=== PATIENT | male | born 1930 | race American Indian/Alaskan Native ===

== ENCOUNTER 2017-11-14 09:27 | Inpatient (IN) | payer MEDICARE ==
[2017-11-14] MEDS ORDERED: ANCEF/STERILE WATER 2 GM/20 ML 2 GM/20 ML SYRINGE IV NR (11:00)
--- NOTE | 2017-11-14 11:11 | Anesthesia Day of Surgery ---
Anesthesia Day of Surgery - Day of Surgery Patient Examined: Yes Patient H&P Reviewed: Yes Patient is NPO: Yes
--- NOTE | 2017-11-14 11:12 | Anesthesia Consultation ---
Anesthesia Consult and Med Hx Date of service: 11/14/17 - Airway Anesthetic Teeth Evaluation: Good ROM Head & Neck: Adequate Mental/Hyoid Distance: Adequate Mallampati Class: Class I Intubation Access Assessment: Good - Pulmonary Exam CTA: Yes - Cardiac Exam Cardiac Exam: RRR - Pre-Operative Health Status ASA Pre-Surgery Classification: ASA3 Proposed Anesthetic Plan: General (GA with LMA ok) - Pulmonary Hx Smoking: No Hx Sleep Apnea: No (CARMELO PRE SCREEN HIGH RISK) - Cardiovascular System Hx Hypertension: Yes (X 6 YRS) - Other Systems Hx Alcohol Use: Yes (WINE QD)
[2017-11-14] MEDS: NACL 0.9% 1000 ML 1,000 ML IV SCH ×2 (11:28→16:51)
[2017-11-14] MEDS ORDERED: XYLOCAINE MPF 2% ONE (11:37)
[2017-11-14] MEDS ORDERED: DIPRIVAN 10 MG/ML IV ONE (11:37)
[2017-11-14] MEDS ORDERED: DILAUDID ONE (11:37)
[2017-11-14] MEDS ORDERED: OMNIPAQUE 300 MG/50 ML (CATH LAB) IV ONE (12:09)
--- NOTE | 2017-11-14 13:18 | Post Operative Note ---
Date of procedure: 11/14/17 Pre-op diagnosis: hematuria .. bladder cancer Post-op diagnosis: same Findings: multifocal tcc Procedure: cysto turbt rpgs Anesthesia: GETA Surgeon: LONDON MOSS Estimated blood loss: minimal Pathology: list (bladder) Specimen disposition: to lab Condition: stable Disposition: PACU
[2017-11-14] MEDS: DILAUDID IV PRN ×4 (13:27→14:00)
--- NOTE | 2017-11-14 13:52 | Operative Report ---
INDICATIONS: The patient is a gentleman with gross hematuria. He had previous radiation for prostate cancer many years ago. He now presents for cystoscopy. CT was negative, but he had a positive cytology. DESCRIPTION OF PROCEDURE: The patient brought to the operating room and placed on the operating table. Following induction of anesthesia, placed in lithotomy position, prepped and draped in the usual sterile fashion. Cystourethroscopy showed bilobar hypertrophy. The bladder was 1-2+ trabeculated. When we entered the bladder, there was an obvious multifocal bladder tumor in the posterior wall, about 1.5 cm above the orifice. This was mostly centrally placed, but a little more to the right than to the left. Retrograde showed good filling, good drainage bilaterally. This tumor was resected. We clearly saw plenty of muscular fibers. It was not very deep and the muscle layers were not very deep and the patient was under LMA and Anesthesia did not feel comfortable putting him deeper. He was starting to move and when we reduced to resect posteriorly, he would move his legs and we did not want to have a big perforation. The patient tolerated the procedure well. Specimen sent to pathology. This looks to be low grade. We clearly got into the muscle and a final pathology pending. I spoke to his son. He has a 3-way, 22-catheter draining clear, irrigated clear. Cystogram showed no extravasation of significance, brought to recovery in stable condition. JOB# [id number] CINDY/ESTEBAN
[2017-11-14] MEDS: ZOFRAN IV PRN ×2 (14:30→14:36)
[2017-11-14] MEDS ORDERED: PERCOCET 5/325 PO PRN (14:33)
[2017-11-14] MEDS ORDERED: SODIUM CHLORIDE FLUSH SYRINGE 10 ML IV PRN (14:33)
[2017-11-14] MEDS ORDERED: ZOFRAN IV PRN (14:33)
[2017-11-14] MEDS ORDERED: AMBIEN PO PRN (14:33)
[2017-11-14] MEDS ORDERED: TYLENOL PO PRN (14:33)
--- NOTE | 2017-11-14 14:33 | History and Physical Report ---
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 Past History Past Medical History: hypertension, hyperlipidemia, other (overactive bladder) Past Surgical History: Other (cystoscopy turbinectomy and RPGS--retrograde pyelogram and stent placement) Social history: no significant social history, lives with family, full code Family history: hypertension Medications and Allergies Allergies Allergy/AdvReac Type Severity Reaction Status Date / Time prednisone AdvReac TESTICULAR Verified 11/10/17 15:38 PAIN Home Medications Medication Instructions Recorded Confirmed Last Taken Type Aspirin [Lo-Dose Aspirin EC] 81 mg PO DAILY 11/10/17 11/14/17 11/07/17 09:00 History AtorvaSTATin [Lipitor] 20 mg PO QHS 11/10/17 11/14/17 11/13/17 20:00 History Cider Vinegar [Apple Cider Vinegar] 300 mg PO BID 11/10/17 11/14/17 11/13/17 17: 00 History Diclofenac Sodium [Pennsaid] 2 gm TP PRN PRN 11/10/17 11/10/17 Unknown History Doxazosin [Cardura] 4 mg PO QDAY 11/10/17 11/14/17 11/13/17 09:00 History Garlic [Odor Free Garlic] 100 mg PO DAILY 11/10/17 11/14/17 11/13/17 09:00 History Hydrochlorothiazide [Hctz] 12.5 mg PO QDAY 11/10/17 11/14/17 11/13/17 09:00 History Levomefolate/B6/B12/Algal Oil 1 each PO DAILY 11/10/17 11/14/17 11/13/17 09:00 History [Metanx Capsule] Multivit-Min/FA/Lycopen/Lutein 1 each PO DAILY 11/10/17 11/14/17 11/13/17 09:00 History [Centrum Silver Men Tablet] [place]-3/Dha/Epa/Fish Oil [Fish Oil 1 each PO DAILY 11/10/17 11/14/17 11/13/17 09 :00 History 1,000 mg Softgel] Pumpkin Seed Oil/Saw [place] [Saw 160 mg PO DAILY 11/10/17 11/14/17 11/13/17 09 :00 History [place] 160 mg Softgel] amLODIPine [Norvasc] 10 mg PO DAILY 11/10/17 11/14/17 11/14/17 09:00 History Active Meds: Active Medications Hydromorphone HCl (Dilaudid) 0.25 mg IV Q10MIN PRN PRN Reason: Pain, Moderate (4-6) Stop: 11/14/17 20:00 Last Admin: 11/14/17 13:38 Dose: 0.25 mg Sodium Chloride (Nacl 0.9% 1000 Ml) 1,000 mls @ 75 mls/hr IV DIRECT NATALIA Last Admin: 11/14/17 11:28 Dose: 75 mls/hr Ondansetron HCl (Zofran) 4 mg IV ONCE PRN PRN Reason: Nausea And Vomiting Stop: 11/14/17 18:00 Sodium Chloride (Nacl 0.9%) 2,000 ml IR DIRECT NATALIA Sodium Chloride (Nacl 0.9%) 2,000 ml IR DIRECT NATALIA Review of Systems All systems: negative Exam - Physical Exam Narrative exam: lying in bed comfortably - Constitutional Vitals: Temp Pulse Resp BP Pulse Ox 98 F 66 22 119/69 95 11/14/17 13:10 11/14/17 13:45 11/14/17 13:45 11/14/17 13:45 11/14/17 13:45 General appearance: Present: no acute distress, well-nourished - EENT Eyes: Present: PERRL ENT: hearing intact, clear oral mucosa - Neck Neck: Present: supple, normal ROM - Respiratory Respiratory effort: normal Respiratory: bilateral: CTA - Cardiovascular Heart rate: 80 Rhythm: regular (80) Heart Sounds: Present: S1 & S2. Absent: rub, click - Extremities Extremities: no ischemia, pulses intact, pulses symmetrical, No edema Peripheral Pulses: within normal limits - Abdominal General gastrointestinal: Present: soft, non-tender, non-distended, normal bowel sounds Male genitourinary: Present: normal - Rectal Rectal Exam: deferred - Integumentary Integumentary: Present: clear, warm, dry - Musculoskeletal Musculoskeletal: gait normal, strength equal bilaterally - Psychiatric Psychiatric: appropriate mood/affect, intact judgment & insight - Neurologic Neurologic: CNII-XII intact, moves all extremities Results - Labs CBC & Chem 7: 11/14/17 10:10 Labs: Laboratory Last Values Potassium 3.3 mmol/L (3.6-5.0) L 11/14/17 10:10 Assessment and Plan Advance Directives: Yes (full code) VTE prophylaxis?: Mechanical Plan of care discussed with patient/family: Yes - Patient Problems (1) Bladder cancer Current Visit: Yes Status: Chronic Qualifiers: Bladder location: posterior wall Qualified Code(s): C67.4 - Malignant neoplasm of posterior wall of bladder Plan to address problem: Patient underwent cystoscopy and turbinectomy. Await biopsy results Further plans per Dr. Meza (2) Hypertension Current Visit: Yes Status: Chronic Qualifiers: Hypertension type: essential hypertension Qualified Code(s): I10 - Essential (primary) hypertension Plan to address problem: Continue antihypertensives (3) Hyperlipidemia Current Visit: Yes Status: Chronic Qualifiers: Hyperlipidemia type: mixed hyperlipidemia Qualified Code(s): E78.2 - Mixed hyperlipidemia Plan to address problem: Continue statins (4) OAB (overactive bladder) Current Visit: Yes Status: Chronic Plan to address problem: Continue Cardura (5) DVT prophylaxis Current Visit: Yes Status: Acute Plan to address problem: SCDs for now
[2017-11-14] MEDS: NORVASC PO SCH (15:00)
[2017-11-14] MEDS ORDERED: NACL 0.9% IR SCH (15:00)
[2017-11-14] MEDS: CARDURA PO SCH (16:49)
[2017-11-14] MEDS: PEPCID IV SCH ×2 (16:54→22:19)
[2017-11-14] MEDS: NACL 0.9% IR SCH (17:00)
[2017-11-14] MEDS: MORPHINE IV PRN (20:18)
[2017-11-14] MEDS: SODIUM CHLORIDE FLUSH SYRINGE 10 ML IV SCH (22:19)
[2017-11-15] MEDS: MORPHINE IV PRN (00:35)
[2017-11-15] MEDS: NACL 0.9% IR SCH ×2 (02:00→04:57)
[2017-11-15] MEDS: NACL 0.9% 1000 ML 1,000 ML IV SCH (06:27)
[2017-11-15 06:49] LABS: Basophils % (Auto) 0.4 % (0.0-1.8); Eosinophils % (Auto) 0.3 % (0.0-4.3); Hematocrit 41.7 % (35.5-45.6); Hemoglobin 14.2 gm/dl (11.8-15.2); Lymphocytes # (Auto) 1.2 K/mm3 (1.2-5.4); Lymphocytes % (Auto) 11.8 % (13.4-35.0); Mean Corpuscular HGB Conc 34 % (32-34); Mean Corpuscular Hemoglobin 30 pg (28-32); Mean Corpuscular Volume 88 fl (84-94); Monocytes % (Auto) 10.1 % (0.0-7.3); Platelet Count 206 K/mm3 (140-440); Red Blood Count 4.73 M/mm3 (3.65-5.03); Red Cell Distribution Width 15.4 % (13.2-15.2)
[2017-11-15 07:07] LABS: Albumin 4.2 g/dL (3.9-5); Calcium 8.6 mg/dL (8.4-10.2)
--- NOTE | 2017-11-15 08:47 | Progress Note ---
Subjective Date of service: 11/15/17 Interval history: Patient is feeling well. He has no anesthetic related complaints. Objective - Constitutional Vitals: Vital Signs - 12hr 11/14/17 11/14/17 11/14/17 20:48 22:00 22:46 Temperature 98.4 F Pulse Rate 66 Pulse Rate [ 88 Apical] Respiratory 18 18 19 Rate Blood Pressure 139/70 O2 Sat by Pulse 98 Oximetry 11/15/17 11/15/17 11/15/17 00:35 01:05 02:00 Temperature Pulse Rate 68 Pulse Rate [ Apical] Respiratory 20 18 Rate Blood Pressure O2 Sat by Pulse 93 Oximetry 11/15/17 11/15/17 02:03 07:37 Temperature 97.8 F 98.5 F Pulse Rate 72 Pulse Rate [ Apical] Respiratory 20 20 Rate Blood Pressure 121/43 164/49 O2 Sat by Pulse 93 Oximetry - Labs CBC & Chem 7: 11/15/17 05:55 11/15/17 05:55 Labs: Abnormal lab results 11/14/17 11/15/17 11/15/17 Range/Units 10:10 05:55 05:55 RDW 15.4 H (13.2-15.2) % Lymph % (Auto) 11.8 L (13.4-35.0) % [place] % (Auto) 10.1 H (0.0-7.3) % [place] # 1.0 H (0.0-0.8) K/mm3 Seg Neutrophils % 77.4 H (40.0-70.0) % Seg Neutrophils # 7.9 H (1.8-7.7) K/mm3 Potassium 3.3 L 3.4 L (3.6-5.0) mmol/L BUN 25 H (9-20) mg/dL Glucose 102 H (75-100) mg/dL
[2017-11-15] MEDS: PEPCID IV SCH (09:58)
[2017-11-15] MEDS ORDERED: HCTZ PO SCH (10:00)
[2017-11-15 10:02] VITALS: BP 125/58
[2017-11-15] MEDS: CARDURA PO SCH (10:02)
[2017-11-15] MEDS: SODIUM CHLORIDE FLUSH SYRINGE 10 ML IV SCH (10:02)
[2017-11-15] MEDS: NORVASC PO SCH (10:03)
--- NOTE | 2017-11-15 11:54 | Discharge Summary ---
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 Patient was admitted overnight postoperatively. Patient also has significant past medical history of hypertension, hyperlipidemia and overactive bladder. Patient was stable overnight and neurology felt patient could be discharged home with catheter in place as a follow-up with urologist on Friday. Dedicated discharge time 35 minutes. 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 (2) Hyperlipidemia Status: Chronic Qualifiers: Hyperlipidemia type: mixed hyperlipidemia Qualified Code(s): E78.2 - Mixed hyperlipidemia (3) Hypertension Status: Chronic Qualifiers: Hypertension type: essential hypertension Qualified Code(s): I10 - Essential (primary) hypertension (4) OAB (overactive bladder) Status: Chronic Core Measure Documentation - Palliative Care Palliative Care/ Comfort Measures: Not Applicable - Core Measures Any of the following diagnoses?: none Exam - Constitutional Vitals: Temp Pulse Resp BP Pulse Ox 98.5 F 73 20 125/58 93 11/15/17 07:37 11/15/17 10:03 11/15/17 07:37 11/15/17 10:03 11/15/17 07:37 General appearance: Present: no acute distress, well-nourished - EENT Eyes: Present: PERRL ENT: hearing intact, clear oral mucosa - Neck Neck: Present: supple, normal ROM - Respiratory Respiratory effort: normal Respiratory: bilateral: CTA - Cardiovascular Heart Sounds: Present: S1 & S2. Absent: rub, click - Extremities Extremities: pulses symmetrical, No edema Peripheral Pulses: within normal limits - Abdominal General gastrointestinal: Present: soft, non-tender, non-distended, normal bowel sounds Male genitourinary: Present: normal - Integumentary Integumentary: Present: clear, warm, dry - Musculoskeletal Musculoskeletal: gait normal, strength equal bilaterally - Psychiatric Psychiatric: appropriate mood/affect, intact judgment & insight - Neurologic Neurologic: CNII-XII intact, moves all extremities Plan Activity: no restrictions Weight Bearing Status: Weight Bear as Tolerated Durable Medical Equipment Needed Upon Discharge: other Additional Instructions: Home with catheter Follow up with: FLETCHER ORTEGA MD [Primary Care Provider] - 7 Days ISHMAEL DALE [Registered Nurse] - 7 Days LONDON MOSS MD [Staff Physician] - 7 Days Forms: Outpatient Surgery DC Inst.
--- NOTE | 2017-11-17 07:21 | Fluoroscopy Report ---
FLUOROSCOPY CYSTOGRAM STATIC-OR History: Hematuria. Findings: Fluoroscopy was provided by radiology during intraoperative cystogram which was performed by the urologist. 3 fluoroscopic images demonstrate a small amount of contrast agent within the bladder. There is no gross filling defect, extravasation or reflux. Please correlate with the procedural report as needed. Impression: Unremarkable cystogram.
--- NOTE | 2017-11-17 07:22 | Fluoroscopy Report ---
FLUOROSCOPY RETROGRADE UROGRAPHY: HISTORY: Hematuria. FINDINGS: Fluoroscopy was provided by radiology during retrograde urography by the urologist. 4 fluoroscopic images were captured. There is adequate filling of the ureters and intrarenal collecting systems with no filling defects or anatomic abnormalities identified. Please correlate with the procedural report if needed. IMPRESSION: Retrograde pyelograms within normal limits.
== END 2017-11-15 12:55 | disposition home or self-care (01) | DRG 670 ==
LOC: OR 09:27 → 2B-ACE 14:33
PROVIDERS: ADMIT Urology; ATTEND Urology
PROC: 0TBB8ZZ Excision of Bladder, Via Natural or Artificial Opening Endoscopic (ICD-10-PCS; principal; 2017-11-14)
PROC: BT141ZZ Fluoroscopy of Kidneys, Ureters and Bladder using Low Osmolar Contrast (ICD-10-PCS; 2017-11-14)
DX: C67.9 Malignant neoplasm of bladder, unspecified (principal); I10 Essential (primary) hypertension; E87.6 Hypokalemia; N32.81 Overactive bladder; E78.5 Hyperlipidemia, unspecified; Z82.49 Family history of ischemic heart disease and other diseases of the circulatory system; Z88.6 Allergy status to analgesic agent; Z79.82 Long term (current) use of aspirin; Z79.899 Other long term (current) drug therapy
CPT/HCPCS: 36415; 74420; 74430; 80053; 84132; 85025; 87116; 88307; A4217; A9270-GY; C1758; J0690; J1170; J2270; J2405; J2704; J7030; Q9967

== ENCOUNTER 2018-06-10 10:22 | Day surgery (SDC) | payer MEDICARE ==
[2018-06-10] MEDS ORDERED: DIPRIVAN 10 MG/ML IV ONE (10:53)
[2018-06-10] MEDS ORDERED: SUBLIMAZE ONE (10:53)
[2018-06-10] MEDS ORDERED: XYLOCAINE MPF 2% ONE (10:56)
[2018-06-10] MEDS ORDERED: LACTATED RINGERS 1,000 ML IV SCH (11:00)
--- NOTE | 2018-06-10 11:24 | Anesthesia Day of Surgery ---
Anesthesia Day of Surgery - Day of Surgery Patient Examined: Yes Patient H&P Reviewed: Yes Patient is NPO: Yes Beta Blockers: No Tucker's Test: N/A
--- NOTE | 2018-06-10 11:26 | Anesthesia Consultation ---
Anesthesia Consult and Med Hx Date of service: 06/10/18 - Airway Anesthetic Teeth Evaluation: Good (age appropriate) ROM Head & Neck: Adequate Mental/Hyoid Distance: Adequate Mallampati Class: Class II Intubation Access Assessment: Good - Pulmonary Exam CTA: Yes - Cardiac Exam Cardiac Exam: RRR - Pre-Operative Health Status ASA Pre-Surgery Classification: ASA3 Proposed Anesthetic Plan: General - Pulmonary Hx Smoking: Yes (PAST SMOKER) Hx Sleep Apnea: No (CARMELO PRE SCREEN HIGH RISK) - Cardiovascular System Hx Hypertension: Yes (X 7 YRS) Hx Heart Attack/AMI: No Hx Angina: No - Central Nervous System Hx Psychiatric Problems: No - Other Systems Hx Alcohol Use: Yes (WINE QD) - Additional Comments Anesthesia Medical History Comments: ASA III 88 y.o.m w/ moderately controlled HTN, HLD, prostate cancer s/p radiation, overactive bladder, with no prior surgeries except for cystocopy for surveillance.
[2018-06-10] MEDS ORDERED: ZOFRAN IV PRN (11:28)
[2018-06-10] MEDS ORDERED: SUBLIMAZE IV PRN (11:28)
[2018-06-10] MEDS ORDERED: ANCEF/STERILE WATER 2 GM/20 ML 2 GM/20 ML SYRINGE IV ONE (12:26)
[2018-06-10] MEDS ORDERED: ANCEF/STERILE WATER 2 GM/20 ML IV NR (12:28)
[2018-06-10] MEDS ORDERED: ZOFRAN ONE (13:02)
[2018-06-10] MEDS ORDERED: METHYLENE BLUE ONE (13:09)
[2018-06-10] MEDS ORDERED: LASIX ONE (13:11)
[2018-06-10] MEDS ORDERED: NACL P/F VIAL (10 ML) 10 ML ONE (13:11)
--- NOTE | 2018-06-10 13:34 | Post Operative Note ---
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
--- NOTE | 2018-06-10 13:36 | Discharge Summary ---
Short Stay Discharge Plan Activity: other (no straining ) Weight Bearing Status: Full Weight Bearing Diet: regular, low salt Durable Medical Equipment Needed Upon Discharge: other (home with cervantes ) Follow up with: FLETCHER ORTEGA MD [Primary Care Provider] - 7 Days LONDON MOSS MD [Staff Physician] - 10 Days
--- NOTE | 2018-06-10 14:01 | Operative Report ---
PREOPERATIVE DIAGNOSES: History of bladder cancer, poor followup, history of radiation for prostate cancer. POSTOPERATIVE DIAGNOSES: History of bladder cancer, poor followup, history of radiation for prostate cancer. PROCEDURE: Cystoscopy, direct vision internal urethrotomy, and bladder biopsies, retrograde. SURGEON: Mak Hutchison MD ANESTHESIA: General. FINDINGS: This is a gentleman, who is 88 with a history of bladder cancer. He did not follow up. He now presents for followup cystoscopy. DESCRIPTION OF PROCEDURE: The patient was brought to the operating room and placed on the operating table. Following induction of anesthesia, placed in lithotomy position, prepped and draped in usual sterile fashion. Cystourethroscopy showed the old scar. The orifices were in right angles, were difficult to find. We gave him some blue. He had signs of previous radiation. There was a pinpoint opening in the membranous urethra, a very short stricture, maybe about 0.5 cm, which was opened and at the 12 o'clock position. The old scar was seen. Biopsies were obtained. The retrograde showed good filling, good drainage, no persistent filling defects. The patient tolerated the procedure well. No significant complications. A 20 Eagle was placed. Family was notified, brought to recovery in stable condition. JOB# [id number] CINDY/ESTEBAN
[2018-06-10 14:17] VITALS: BP 137/71
--- NOTE | 2018-06-11 07:30 | Fluoroscopy Report ---
FLUOROSCOPY RETROGRADE UROGRAPHY: HISTORY: Gross hematuria. FINDINGS: Fluoroscopy was provided by radiology during retrograde urography by the urologist. 5 fluoroscopic images were captured. There is adequate filling of the ureters and intrarenal collecting systems with no filling defects or anatomic abnormalities identified. Please correlate with the procedural report if needed. IMPRESSION: Retrograde pyelograms within normal limits.
== END 2018-06-10 10:23 | disposition home or self-care (01) ==
LOC: OR 10:22
PROVIDERS: ATTEND Urology
DX: N36.8 Other specified disorders of urethra (principal); R31.0 Gross hematuria; N35.919 Unspecified urethral stricture, male, unspecified site; I10 Essential (primary) hypertension; E78.5 Hyperlipidemia, unspecified; E78.00 Pure hypercholesterolemia, unspecified; M19.90 Unspecified osteoarthritis, unspecified site; Z98.49 Cataract extraction status, unspecified eye; Z87.442 Personal history of urinary calculi; Z72.89 Other problems related to lifestyle; Z85.51 Personal history of malignant neoplasm of bladder; Z85.46 Personal history of malignant neoplasm of prostate; Z79.899 Other long term (current) drug therapy; Z79.82 Long term (current) use of aspirin; Z79.01 Long term (current) use of anticoagulants; Z87.891 Personal history of nicotine dependence; Z80.8 Family history of malignant neoplasm of other organs or systems; Z88.8 Allergy status to other drugs, medicaments and biological substances
CPT/HCPCS: 36415; 52204; 52276; 74420; 84132; 88305; C1758; J0690; J1940; J2405; J2704; J3010; J7120; Q9967; Q9968

== ENCOUNTER 2020-12-04 07:07 | Day surgery (SDC) | payer MEDICARE ==
[2020-12-04 20:29] VITALS: BP 159/81
== END 2020-12-04 07:08 | disposition home or self-care (01) ==
LOC: OR 07:07
PROVIDERS: ATTEND Urology
DX: C67.9 Malignant neoplasm of bladder, unspecified (principal); I10 Essential (primary) hypertension; M19.90 Unspecified osteoarthritis, unspecified site; N32.81 Overactive bladder; E78.00 Pure hypercholesterolemia, unspecified; Z79.899 Other long term (current) drug therapy; Z88.8 Allergy status to other drugs, medicaments and biological substances; Z72.89 Other problems related to lifestyle
CPT/HCPCS: 36415; 52234; 74018; 80048; 88305; J0690; J1940; J2001; J2405; J2704; J3010; J7120; Q9967